=== PATIENT | female | born 1990 | race Asian ===

== ENCOUNTER 2021-11-04 08:00 | Outpatient (CLI) | payer OTHER | END 2021-11-04 23:59 | LOC: LAB.N 08:00 | PROVIDERS: ATTEND Physician Assistant Medical | DX: R09.81 Nasal congestion (principal); Z20.822 Contact with and (suspected) exposure to COVID-19 ==

== ENCOUNTER 2022-10-28 08:03 | Outpatient (CLI) | payer OTHER ==
--- NOTE | 2022-10-28 13:41 | MRI Report ---
PROCEDURE: FOOT WO - RT INDICATIONS: FOOT PAIN TECHNIQUE: Noncontrast sagittal T1 spin echo and T2 fast spin echo with fat saturation, long-axis T1 spin echo a nd T2 fast spin echo with fat saturation, short-axis proton density fast spin echo and T2 fast spin e cho with fat saturation through the forefoot. COMPARISON: None. FINDINGS: Image quality: Excellent. Bones and joints: Fiducial marker is placed over dorsal aspect of third MTP joint. There is no marrow edema. No acute fracture or dislocation. No metatarsal stress fractures. Joint spaces are well-prese rved. No suspicious intraosseous lesion. Soft tissues: The visualized plantar foot muscles demonstrate normal signal and bulk. Visualized fl exor and extensor tendons appear intact, without tenosynovitis. No soft tissue ganglion cysts. Small amount of fluid between second and third metatarsal heads and third and fourth metatarsal heads conc erning for Sagittal images demonstrate no evidence for plantar plate tears. IMPRESSION: 1. No fracture or dislocation is seen in midfoot and forefoot. No metatarsal shaft stress fractures. No suspicious intraosseous lesion. 2. Small amount of fluid within soft tissue between second and third metatarsal heads and between thi rd and fourth metatarsal heads which could represent small amount of intermetatarsal bursal fluid and bursitis. 3. Extensor and flexor tendons are intact. Distal peroneus tendons are intact. No plantar foot muscle s signal abnormalities. 4. Lisfranc ligament and joint is intact. Reviewed by: Maulik Del Rosario MD on 10/28/2022 1:39 PM PST Approved by: Maulik Del Rosario MD on 10/28/2022 1:39 PM PST Station ID: [id number]
== END 2022-10-28 08:04 | disposition home or self-care (01) ==
LOC: DI 08:03
PROVIDERS: ATTEND Student in an Organized Health Care Education/Training Program
DX: M79.671 Pain in right foot (principal); R93.89 Abnormal findings on diagnostic imaging of other specified body structures